=== PATIENT | male | born 1945 | race Caucasian/White ===

== ENCOUNTER 2021-06-19 11:32 | Day surgery (SDC) | payer MEDICARE ==
[2021-06-19] VITALS (14 sets, daily range): BP systolic 96–138; BP diastolic 51–85
[~2021-06-19] VITALS: Ht 182.9 cm; Wt 95.0 kg
[~2021-06-19 11:32] MED LIST: AMIO200T61 PO; ATOR40TA PO; COU7.5T PO; WARF-55 PO
[2021-06-19] MEDS ORDERED: normal saline 1000ml 1,000 ML IV SCH (12:10)
[2021-06-19] MEDS ORDERED: fentaNYL/PF 50MCG/1 ML 2ML syringe IV ONE (12:10)
[2021-06-19] MEDS ORDERED: MIDAZolam 1mg/ml 10ml vial IV ONE (12:10)
[2021-06-19] MEDS ORDERED: CHOL200074 PO (12:21)
[2021-06-19] MEDS ORDERED: ACET-2319 (12:21)
[2021-06-19] MEDS ORDERED: CYAN-50 PO (12:21)
[2021-06-19] MEDS ORDERED: ATRNS (12:21)
[2021-06-19] MEDS ORDERED: WARF-55 PO (12:21)
[2021-06-19] MEDS ORDERED: METO75TA PO (12:21)
[2021-06-19] MEDS ORDERED: FLUT16SP2 BOTHNARES (12:21)
[2021-06-19 13:08] LABS: BASOPHILS % (AUTO) 0.4 % (0-1); EOSINOPHILS # (AUTO) 0.1 X10'3 (0-0.9); EOSINOPHILS % (AUTO) 1.2 % (0-6); HEMATOCRIT 33.7 % (42.0-52.0); HEMOGLOBIN 11.1 g/dl (14.0-17.9); LYMPHOCYTES # (AUTO) 0.8 X10'3 (1.1-4.8); LYMPHOCYTES % (AUTO) 14.5 % (21-51); MEAN CORPUSCULAR HEMOGLOBIN 32.2 PG (27.0-31.0); MEAN CORPUSCULAR VOLUME 97.4 FL (78-98); MEAN PLATELET VOLUME 8.7 FL (7.4-10.4); MONOCYTES # (AUTO) 0.6 X10'3 (0-0.9); MONOCYTES % (AUTO) 11.8 % (2-12); NEUTROPHILS # (AUTO) 3.9 X10'3 (1.8-7.7); NEUTROPHILS % (AUTO) 72.1 % (42-75); PLATELET COUNT 150 X10'3 (140-440); RED BLOOD COUNT 3.46 X10'6 (4.70-6.10); RED CELL DISTRIBUTION WIDTH 13.4 % (11.5-14.5); WHITE BLOOD COUNT 5.4 X10'3 (4.5-11.0)
[2021-06-19 13:29] LABS: ANION GAP 5 (8-16); BLOOD UREA NITROGEN 34 MG/DL (7-18); BUN/CREATININE RATIO 25.8 (5.4-32.0); CALCIUM 8.4 MG/DL (8.5-10.1); CHLORIDE 109 MMOL/L (99-107); CREATININE 1.32 MG/DL (0.60-1.10); GLUCOSE 107 MG/DL (70-104); POTASSIUM 4.7 MMOL/L (3.5-5.1); SODIUM 140 MMOL/L (135-145); TOTAL CARBON DIOXIDE 26.1 MMOL/L (24-32); eGFR 53 ML/MIN
== END 2021-06-19 14:30 | disposition home or self-care (01) ==
LOC: SSTAY O 11:32
PROVIDERS: ATTEND Internal Medicine Interventional Cardiology
DX: I48.0 Paroxysmal atrial fibrillation (principal); I25.10 Atherosclerotic heart disease of native coronary artery without angina pectoris; E11.9 Type 2 diabetes mellitus without complications; I10 Essential (primary) hypertension; E78.5 Hyperlipidemia, unspecified; I45.2 Bifascicular block; Z87.891 Personal history of nicotine dependence; Z79.899 Other long term (current) drug therapy; Z95.2 Presence of prosthetic heart valve; Z86.711 Personal history of pulmonary embolism; Z95.1 Presence of aortocoronary bypass graft; Z98.84 Bariatric surgery status; Z79.01 Long term (current) use of anticoagulants; Z88.0 Allergy status to penicillin; Z91.013 Allergy to seafood
CPT/HCPCS: 36415; 80048; 85025; 85610; 92960; 93005; J2250; J3010; J7030

== ENCOUNTER 2024-02-24 11:18 | Outpatient (CLI) | payer MEDICARE, OTHER ==
[~2024-02-24 11:18] MED LIST changes: +ACET-2319; +AMI200T PO; -AMIO200T61 PO; +ATRNS; +CHOL200074 PO; -COU7.5T PO; +CYAN-50 PO; +FLUT16SP2 BOTHNARES; +METO75TA PO
== END 2024-02-24 23:59 | disposition home or self-care (01) ==
LOC: CARD DIAG 11:18
PROVIDERS: ATTEND Chiropractor
DX: I08.8 Other rheumatic multiple valve diseases (principal); I25.10 Atherosclerotic heart disease of native coronary artery without angina pectoris; I27.20 Pulmonary hypertension, unspecified; Z95.1 Presence of aortocoronary bypass graft; Z95.2 Presence of prosthetic heart valve; V89.2XXA Person injured in unspecified motor-vehicle accident, traffic, initial encounter; Y93.89 Activity, other specified; Y92.89 Other specified places as the place of occurrence of the external cause; Y99.8 Other external cause status
CPT/HCPCS: 93306